=== PATIENT | female | born 1945 | race Caucasian/White ===

== ENCOUNTER → 2017-12-10 19:31 | Outpatient (CLI) | payer MEDICARE | END | disposition home or self-care (01) | LOC: D.MAMMO 10-02 10:15 | DX: Z12.31 Encounter for screening mammogram for malignant neoplasm of breast (principal) ==

== ENCOUNTER → 2018-08-26 10:23 | Outpatient (CLI) | payer MEDICARE | END | disposition home or self-care (01) | LOC: D.US 10:23 | DX: E03.9 Hypothyroidism, unspecified (principal) ==

== ENCOUNTER → 2019-02-09 12:39 | Outpatient (CLI) | payer MEDICARE | END | disposition home or self-care (01) | LOC: D.HCCARDIO 12:39 | PROVIDERS: ATTEND Internal Medicine Cardiovascular Disease | DX: I48.2 Chronic atrial fibrillation (principal) ==

== ENCOUNTER 2019-12-02 10:00 | Outpatient (CLI) | payer MEDICARE | END 2019-12-02 11:00 | disposition home or self-care (01) | LOC: D.MAMMO 10:00 | PROVIDERS: ATTEND Family Medicine | DX: Z12.31 Encounter for screening mammogram for malignant neoplasm of breast (principal) ==

== ENCOUNTER 2020-12-25 12:10 | Day surgery (SDC) | payer MEDICARE ==
[~2020-12-25] VITALS: Ht 160 cm; Wt 78.4 kg
--- NOTE | ~2020-12-25 | HEMODYNAMI ---
PATIENT:DANNY VEE MEDICAL RECORD: [id number] : 41 LOCATION:[facility] ADMISSION DATE: 12/25/20 Generatedon:115:48 Patient name: DANNY VEE Patient #: [id number] SSN: : 1945 Date of study: 12/25/2020 Page: Of Hemodynamic Procedure Report Patient Data Patient Demographics Procedure consent was obtained First Name: DANNY Gender: Female Last Name: MARIUSZ : 1945 Patient #: [id number] Age: 75 year(s) Race: Unknown Additional ID: [id number] Contact details [address]: [address] [place] [address] State: [place] City: [place] Zip code: [address] Past Medical History Allergies Allergen Reaction Date Comments Reported Other allergy 12/25/2020 NAPROXEN, SULFA Admission Admission Data Admission Date: 12/25/2020 Admission Time: 12:10 Arrival Date: 12/25/2020 Arrival Time: 0:00 Height (in.): 62.99 BSA: 1.81 (m2) Height (cm.): 160 BMI: 30.47 (kg/m2) Weight (lbs.): 171.96 Weight (kg.): 78 Lab Results Lab Result Date: 12/25/2020 Lab Result Time: 0:00 Biochemistry Name Units Result Min Max BUN mg/dl 22 --(----)-* 7 18 Creatinine mg/dl 1 --(--*-)-- 0.6 1.3 eGFR ml/min 57 *-(----)-- 90 120 NONAFRICAN CBC Name Units Result Min Max Hematocrit % 37.5 *-(----)-- 42 54 Hemoglobin g/dl 12.4 *-(----)-- 13.5 17.5 Procedure Procedure Types Cath Procedure Diagnostic Procedure PPM/ICD Permanent Pacer Generator Exg. Generator Removal Sedation Charges Moderate Sedation 10-24 minutes Procedure Description Procedure Date Procedure Date: 12/25/2020 Procedure Start Time: 15:21 Procedure End Time: 15:46 Procedure Staff Name Function Emanuel Hernandez MD Performing Physician Geoffrey Lin RN Nurse Dianelys Hickey RT Scrub Azalia eKlley RT Monitor Procedure Data Cath Procedure Fluoroscopy Diagnostic fluoroscopy Total fluoroscopy Time: 0 time: 0 min min Diagnostic fluoroscopy Total fluoroscopy dose: 0 dose: 0 mGy mGy Estimated blood loss: 5 ml Procedure Complications No complications Procedure Medications Medication Administration Route Dosage 0.9% NaCl I.V. 100 ml/hr Oxygen etCO2 Nasal cannula 2 l/min Ancef (1Gm/50ml NS) I.V.P.B 1 g Ancef Irrigation Topical 1 g (1gm/500ml NS) Lidocaine 1% with added to field 20 ml Epi Versed I.V. 2 mg Fentanyl I.V. 100 mcg Versed I.V. 2 mg Fentanyl I.V. 50 mcg Hemodynamics Rest BSA: 1.81 (m2) HGB: 12.4 (g/dl) O2 Consumption: Estimated: 154.29 (ml/min) O2 Co nsumption indexed: Estimated:85.24 (ml/min/m) Heart Rate: 56 (bpm) Snapshots Pre Cath Intra NCS Post Cath Vital Signs Time Heart Resp SPO2 etCO2 NIBP (mmHg) Rhythm Pain Sedation Rate (ipm) (%) (mmHg) Status Level (bpm) 15:02:26 65 13 99 15.7 157/86(124) Paced 0 (11) 10(A) , No pain 15:06:43 65 20 100 18.7 147/73(115) Paced 0 (11) 10(A) , No pain 15:11:00 65 20 100 36.7 145/71(114) Paced 0 (11) 10(A) , No pain 15:15:17 65 15 99 27.6 132/71(95) Paced 0 (11) 10(A) , No pain 15:20:20 64 26 100 19.4 138/71(98) Paced 0 (11) 10(A) , No pain 15:24:34 64 18 100 12.7 115/72(86) Paced 0 (11) 9(A) , No pain 15:29:35 65 14 100 16.4 115/68(99) Paced 0 (11) 9(A) , No pain 15:33:43 50 16 100 17.9 131/63(96) Paced 0 (11) 10(A) , No pain 15:37:57 60 14 100 0.7 124/64(94) Paced 0 (11) 10(A) , No pain 15:42:08 59 11 100 25.4 131/64(101) Paced 0 (11) 10(A) , No pain 15:46:21 60 16 20.9 137/63(101) Paced 0 (11) 10(A) , No pain Medications Time Medication Route Dose Verified Delivered Reason Notes Effectiv eness by by 15:05:18 0.9% NaCl I.V. 100 Geoffrey Geoffrey Per ml/hr Lorigan Lorigan physician RN RN 15:05:29 Oxygen etCO2 2 Geoffrey Geoffrey for low 02 Nasal l/min Lorigan Lorigan sats cannula RN RN 15:05:50 Ancef I.V.P.B 1 g Geoffrey Geoffrey Per (1Gm/50ml Riley Gomezigan physician NS) RN RN 15:06:12 Ancef Topical 1 g Geoffrey Geoffrey used for Irrigation Lorigan Lorigan procedure (1gm/500ml RN RN NS) 15:08:07 Lidocaine added 20 ml Geoffrey Geoffrey for local 1% with Epi to Lorigan Lorigan anesthetic field RN RN 15:21:39 Versed I.V. 2 mg Geoffrey Geoffrey for Lorigan Lorigan sedation RN RN 15:21:46 Fentanyl I.V. 100 Geoffrey Geoffrey for mcg Lorigan Lorigan sedation RN RN 15:23:26 Versed I.V. 2 mg Geoffrey Geoffrey for Lorigan Lorigan sedation RN RN 15:23:33 Fentanyl I.V. 50 Geoffrey Geoffrey for mcg Lorigan Lorigan sedation RN clinical dental technician Log Time Note 14:07:31 Informed consent obtained and on chart 14:07:55 Procedure Status PPM/ Gen Change/ Lead Revision/ Temp. 14:07:56 Time tracking: Regular hours (M-F 7:00 - 5:00) 14:07:59 Plan of Care:Hemodynamics will remain stable., Cardiac rhythm will remain stable., Comfort level will be maintained., Respiratory function will remain adequate., Patient/ family verbilizes understanding of procedure., Procedure tolerated without complication., Recovers from procedure without complications.. 14:08:08 H&P Date Dictated: 12/24/2020 Within 30 days and on chart., H&P Addendum completed by physician on day of procedure. (MUST COMPLETE FOR ALL OUTPATIENTS). 14:08:19 Patient allergic to Other allergyNAPROXEN, SULFA 14:45:41 Dianelys Hickey RT(R) sent for patient. Start room use. 14:51:31 Patient received from Pre/Post Procedure Room to CCL 2 Alert and oriented. Tansferred to table in Supine position. 14:51:32 Warm blankets applied, and chandu hugger turned on for patient comfort. 14:51:33 Correct patient and procedure confirmed by team. 14:51:33 ECG and BP/O2 sat monitors applied to patient. 15:01:20 Vital chart was started 15:01:21 Baseline sample Acquired. 15:01:24 Rhythm: sinus rhythm 15:01:25 Full Disclosure recording started 15:01:26 Pre-procedure instructions explained to patient. 15:01:26 Pre-op teaching completed and patient verbalized understanding. 15:01:34 Family in patients room. 15:01:35 Patient NPO since Midnight. 15:01:38 Is the patient allergic to Iodine/contrast media? No. 15:01:39 Is patient on blood thinner?Yes 15:01:53 LAST DOSE OF ELIQUIS ON THURSDAY 15:03:40 Patient diabetic? No. 15:03:49 Patient not . Patient is over age 55. 15:03:52 Previous problem with sedation/anesthesia? No ? 15:03:54 Snore? Yes 15:03:55 Sleep apnea? No 15:03:56 Deviated septum? No 15:03:57 Opens mouth fully? Yes 15:03:58 Sticks out tongue? Yes 15:04:00 Airway obstruction? No ? 15:04:03 Dentures? No ? 15:04:19 IV patent on arrival in right antecubital with 0.9% NaCl at [facility]. 15:05:18 0.9% NaCl 100 ml/hr I.V. was administered by Geoffrey Lin RN; Per physician; Verbal order read back and verified. 15:05:29 Oxygen 2 l/min etCO2 Nasal cannula was administered by Geoffrey Lni RN; for low 02 sats; Verbal order read back and verified. 15:05:50 Ancef (1Gm/50ml NS) 1 g I.V.P.B was administered by Geoffrey Lin RN; Per physician; Verbal order read back and verified. 15:06:12 Ancef Irrigation (1gm/500ml NS) 1 g Topical was administered by Geoffrey Lin RN; used for procedure; Verbal order read back and verified. 38 Lab Result : BUN 22 mg/dl : Lab Result : Creatinine 1 mg/dl : Lab Result : eGFR NONAFRICAN 57 ml/min : Lab Result : Hemoglobin 12.4 g/dl : Lab Result : Hematocrit 37.5 % 15:: Lab results completed and on chart. 15::54 Patient Weight : 171.96 lbs 15::57 Patient Height : 62.99 inches 15:07:03 Arrival Date: 12/25/2020 12:00:00 AM 15:08:07 Lidocaine 1% with Epi 20 ml added to field was administered by Geoffrey Lin RN; for local anesthetic; Verbal order read back and verified. 15:18:10 Left chest area was prepped with chlora-prep and draped in sterile fashion 15:18:10 Alarms reviewed by R. N. 15:18:11 Sharps counted by scrub and verified by R.N. 15:18:30 5-0 Monocryl PS3 [id number] opened to sterile field. 15:18:30 3-0 Vicryl Single Pack [id number] opened to sterile field. 15:19:45 --------ALL STOP TIME OUT------ 15:19:46 Final Timeout: patient, procedure, and site verified with staff and physician. All members of the team are in agreement. 15:19:51 Left chest site verified by team. 15:19:58 Fire Safety Assessment: A--An alcohol-based skin anteseptic being used preoperatively., C--Open oxygen or nitrous oxide is being used. 15:20:01 Physical assessment completed. ASA score P 2 - A patient with mild systemic disease as per Emanuel Hernandez MD. 15:20:04 Sedation plan: IV Moderate Sedation Medication:Versed, Fentanyl 15:21:23 Procedure started. 15:21:31 [employer] customer service representative teller NITA TURCIOS present for procedure. 15:21:39 Versed 2 mg I.V. was administered by Geoffrey Lin RN; for sedation; Verbal order read back and verified. 15::43 Pre sharps counted by scrub and verified by RN: Sutures: 2; Sponges: 5; Stick needles: 2; Skin needles: 2; Blade: 1; Cautery: 1 15::45 Grounding pad site Left thigh. 15::46 Fentanyl 100 mcg I.V. was administered by Geoffrey Lin RN; for sedation; Verbal order read back and verified. 15:: Grounding pad site free from injury. 15::55 Lidocaine 1% w/epi was administered to left subclavicular area by Emanuel Hernandez MD . 15:23: Versed 2 mg I.V. was administered by Geoffrey Lin RN; for sedation; Verbal order read back and verified. 15:23:33 Fentanyl 50 mcg I.V. was administered by Geoffrey Lin RN; for sedation; Verbal order read back and verified. 15:24:00 Incision made to left subclavicular area. 15:32:29 Generator pocket made/opened. 15:32:44 Use device set ISAIAH PPM 15:32:46 Cautery Tip Slip Laster opened to sterile field. 15:32:46 Cautery Pushbutton Pencil opened to sterile field. 15:32:48 Mepilex Dressing ([id number]) opened to sterile field. 15:33:31 PPM Dual was removed.. 15:34:[address] Generator [id number] opened to sterile field. 15:34:12 PPM Dual was inserted subcutaneously to left chest. 15:34:26 Subcutaneous closure was completed with 3-0 vicryl. 15:36:36 Generator was sutured in place with 3-0 vicryl. 15:37:48 Device pocket was irrigated with Ancef. 15:37:56 Skin closure was completed with 5-0 monocryl. 15:43:32 Lt Chest incision was dressed with Steri Strips and tegaderm 15:44:05 Procedure ended.(Physican Out) 15:45:21 Fluoroscopy time 00.00 minutes. :45: Flurop Dose total: 0 15:45:23 Fluoroscopy dose: 0 mGy 15:45:24 Dose Area Product 0 mGy/cm. 15:45:46 Post-procedure physical assessment completed. ASA score P 2 - A patient with mild systemic disease as per Emanuel Hernandez MD. 15:45:58 Post procedure rhythm: sinus rhythm 15:46:01 Estimated blood loss: 5 ml 15:46:02 Post procedure instruction explained to patient.Patient verbalizes understanding. 15:46:03 Patient needs reinforcement of post procedure teaching. 15:46:30 Procedure type changed to Cath procedure, Diagnostic procedure, PPM/ICD, Permanent Pacer Generator Exg., Generator Removal, Sedation Charges, Moderate Sedation 10-24 minutes 15:46:41 Procedure and supply charges have been captured, reviewed, submitted and are correct. 15:46:47 Procedure Complication : No complications 15:46:48 Vital chart was stopped 15:46:50 Operative report dictated upon procedure completion. 15:46:50 See physician's report for complete and final results. 15:46:52 Report given to Pre/Post Procedure Room. 15:46:54 Patient transfered to Pre/Post Procedure Room with Bed. 15:46:56 Procedure ended. 15:46:56 Full Disclosure recording stopped 15:47:01 End room use (Document Last) 15:47:13 End room use (Document Last) 15:47:31 End room use (Document Last) Device Usage Item Name Manufacture Quantity Catalog Hospital Part Current Minimal Lo t# / Number Charge Number Stock Stock Serial# Code 5-0 Ethicon 1 [id number] 5 Monocryl PS3 [id number] 3-0 Vicryl Ethicon 1 [id number] 5 Single Pack [id number] Cautery Microtek 1 [id number] [id number] 5 [employer] Slip Laster Cautery Microtek 1 [id number] [id number] 5 [employer] Pencil Mepilex Cardinal 1 [id number] 137545 [id number] 5 [facility] ([id number]) Med[employer] Medtronic 1 [id number] 5 RN [id number] JARED XT EX P: Generator [id number] Signature Audit [place] Stage Time Signature Unsigned Intra-Procedure 12/25/2020 Azalia Kelley 3:47:13 PM RT(R) Intra-Procedure 12/25/2020 Geoffrey 3:47:31 PM Lorigan RN Intra-Procedure 12/25/2020 Emanuel Mcdermott 3:48:01 PM Christopher Levine Performing Physician : Signature : Emanuel Hernandez MD Date : Time : Nurse : Geoffrey Lorigan Signature : RN Date : Time : Monitor : Azalia Kelley Signature : RT Date : Time : [address] [address] [place] [address]
[2020-12-25] MEDS ORDERED: LIPITOR20 MG PO (12:34)
[2020-12-25] MEDS ORDERED: ELIQUIS2.5 MG PO (12:34)
[2020-12-25] MEDS ORDERED: HYDROXYCHLOROQ200 MG PO (12:34)
[2020-12-25] MEDS ORDERED: COLCRYS0.6 MG PO (12:36)
[2020-12-25 12:57] VITALS: BP 134/52; Ht 160 cm; Wt 78.4 kg
[2020-12-25 13:20] LABS: ANION GAP 10.3 mmol/L (8-16); CALCIUM 9.4 mg/dL (8.5-10.1); POTASSIUM - SERUM 4.3 mmol/L (3.5-5.1)
[2020-12-25 13:29] LABS: APTT 31.6 SECONDS (22.8-39.4); INR 1.22 (0.85-1.17); PROTIME 14.2 SECONDS (11.6-15.0)
[2020-12-25 13:30] LABS: HEMATOCRIT 37.5 % (36.0-48.0); HEMOGLOBIN 12.4 g/dL (12-16); MCH 30.8 pg (26.0-34.0); MCHC 33.1 g/dL (31.0-37.0); MCV 93.1 fL (80.0-100.0); MEAN PLATELET VOLUME 10.2 fL (7.4-10.4); RBC 4.03 10x6/uL (4.00-5.40); RDW 12.9 % (11.5-14.5); WBC 5.6 10x3/uL (4.8-10.8)
--- NOTE | 2020-12-25 15:55 | NUR ---
PT REC'D TO CATH RECOVERY ROOM 2 VIA STRETCHER. MONITORS ESTAB, SEE CFA. AT BS. PT AWAKE. ALARMS ON AND C/L IN REACH.
--- NOTE | 2020-12-25 16:10 | NUR ---
L CHEST DSG C/D/I, NO REDNESS OR DRAINAGE NOTED. PT SITTING UP, GIVEN SANDWICH AND SPRITE PER REQUEST. VSS. PT DENIES PAIN OR NEEDS. CM - V PACED, NO ECTOPY NOTED. ALARMS ON AND C/L IN REACH.
--- NOTE | 2020-12-25 16:40 | NUR ---
CM - V PACED AT 60, NO ECTOPY NOTED. L CHEST DSG C/D/I, NO REDNESS OR DRAINAGE NOTED. VSS. ALARMS ON AND C/L IN REACH.
--- NOTE | 2020-12-25 16:50 | NUR ---
L CHEST DSG C/D/I, PT DENIES PAIN OR NEEDS. VSS. CM - PACED, NO ECTOPY NOTED.
--- NOTE | 2020-12-25 16:56 | NUR ---
ALL DISCHARGE INSTRUCTIONS REVIEWED WITH PT AND HER , INCLUDING RESRICTIONS, MEDS AND F/U - BOTH VERBALIZE UNDERSTANDING. PIV D/C'D INTACT AND PT ALLOWED UP TO GET DRESSED AND GO TO BR INDEPENDENTLY.
--- NOTE | 2020-12-25 17:00 | NUR ---
PT D/C'D VIA WC WITH ALL PAPERWORK AND BELONGINGS, TO PRIVATE VEHICLE.
== END 2020-12-25 17:00 | disposition home or self-care (01) ==
LOC: D.CATH 12:10
PROVIDERS: ATTEND Internal Medicine Interventional Cardiology
DX: I48.91 Unspecified atrial fibrillation (principal); Z45.018 Encounter for adjustment and management of other part of cardiac pacemaker; T82.111A Breakdown (mechanical) of cardiac pulse generator (battery), initial encounter